=== PATIENT | female | born 1955 | race Caucasian/White ===

== ENCOUNTER 2024-04-21 15:23 | Outpatient (CLI) | payer MEDICARE, SELFPAY ==
--- NOTE | 2024-04-21 09:15 | DI.RAD_ITS ---
Exam(s) XR KNEE RT 4V AP,LAT,STACEY,PAT EXAM: XR KNEE RT 4V AP,LAT,STACEY,PAT CLINICAL HISTORY: RIGHT KNEE PAIN. TECHNIQUE: 2D digital imaging was performed of the right knee. Four views obtained. Merchant, AP, la teral and PA tunnel views were obtained. COMPARISON: No exams were available for comparison FINDINGS: BONES: No acute fracture is present. No bony destructive lesion is seen. JOINTS: The knee is normally aligned. There is a small joint effusion. The joint spaces are otherwis e well maintained. SOFT TISSUE: Normal. IMPRESSION: Small joint effusion. DATA REPOSITORY: RADIATION DOSE DELIVERED:
== END 2024-04-21 15:24 | disposition home or self-care (01) ==
LOC: DIORS 15:23
PROVIDERS: PCP Internal Medicine; Referring Provider Internal Medicine; Visit Provider Physician Assistant
DX: S83.241A Other tear of medial meniscus, current injury, right knee, initial encounter; X58.XXXA Exposure to other specified factors, initial encounter
CPT/HCPCS: 99203; 73564

== ENCOUNTER 2024-05-12 01:20 | Outpatient (CLI) | payer MEDICARE, SELFPAY ==
--- NOTE | 2024-05-12 07:00 | DI.MRI_ITS ---
Exam(s) MR LOWER JOINT RT WO EXAM: MR LOWER JOINT RT WO CLINICAL HISTORY: PAIN,tear of medial meniscus rt knee, s83.241a. TECHNIQUE: Multiplanar multisequence MRI was performed. COMPARISON: CR XR KNEE RT 4V AP,LAT,STACEY,PAT from 04/21/2024 FINDINGS: BONES: There is no fracture or contusion pattern. JOINTS: There is loss of the articular cartilage in the lateral patellofemoral joint with subchondral edema present. There is a moderate size joint effusion. TENDONS: Extensor mechanism: Unremarkable. Medial retinaculum: Unremarkable. Lateral retinaculum: Unremarkable. Popliteus: Unremarkable. MUSCLES: Unremarkable. MENISCI: There is degenerative signal seen in the medial meniscus. There is hyperintense linear sign al seen extending the entire length of the anterior horn of the lateral meniscus and into the body rodriguez spicious for tear. SOFT TISSUES: There is fluid seen anterior to the patella which may represent a bursitis. LIGAMENTS: Anterior Cruciate: Unremarkable. Posterior Cruciate: Unremarkable. Medial Collateral:Unremarkable. Lateral Collateral: Unremarkable. OTHER: IMPRESSION: 1. Marked arthritic changes involving the patellofemoral joint particularly laterally. 2. Hyperintense signal on the T2 weighted images in the anterior horn and body of the lateral meniscu s suspicious for tear. 3. Degenerative changes seen in the medial meniscus. 4. No evidence of a ligament tear. DATA REPOSITORY:
== END 2024-05-12 01:40 ==
LOC: DI 01:20
PROVIDERS: PCP Internal Medicine; Visit Provider Student in an Organized Health Care Education/Training Program
DX: S83.241D Other tear of medial meniscus, current injury, right knee, subsequent encounter (principal); X58.XXXD Exposure to other specified factors, subsequent encounter
CPT/HCPCS: 73721

== ENCOUNTER → 2024-05-22 10:00 | Outpatient (BNVA) | payer MEDICARE, SELFPAY | PROVIDERS: PCP Internal Medicine; Referring Provider Internal Medicine; Visit Provider Student in an Organized Health Care Education/Training Program | DX: M17.11 Unilateral primary osteoarthritis, right knee (principal); S83.281A Other tear of lateral meniscus, current injury, right knee, initial encounter; X58.XXXA Exposure to other specified factors, initial encounter | CPT/HCPCS: 99214 ==

== ENCOUNTER 2024-05-28 12:32 | Day surgery (SDC) | payer MEDICARE, SELFPAY ==
[2024-05-28] VITALS (18 sets, daily range): BP systolic 109–150; BP diastolic 58–93; PULSE 60–69; RESP 13–17; TEMP 35.8–36.5; O2SAT 96–99; BMI 24.0
--- NOTE | 2024-05-28 09:51 | W.PM.DSUDISC ---
Date of service: 05/28/24 Discharge Plan Disposition Patient Disposition: Home Condition: Good Discharge Details Reason For Visit: L Knee Arthroscopy Attending Provider: Tera Kruger Primary Care Provider: Akiko Huff Home Meds and New Rx's Prescriptions: New acetaminophen 500 mg tablet 1,000 mg PO TID Qty: 90 0RF hydrocodone-acetaminophen 5-325 mg tablet 1 tab PO Q6H PRN (Reason: pain) Qty: 6 0RF ibuprofen 600 mg tablet 600 mg PO TID PRN (Reason: pain) Qty: 90 0RF Continued calcium citrate-vitamin D3 200 mg-6.25 mcg (250 unit) tablet 2 tab PO DAILY docusate sodium [Colace] 100 mg capsule 200 mg PO .weekly PRN polyethylene glycol 3350 [Miralax] 17 gram/dose powder 17 g PO DAILY nitrofurantoin macrocrystal 50 mg capsule 50 mg PO QHS Rx Instructions: must administer with a meal/food Discontinued ibuprofen 200 mg tablet 400 mg PO Q6H PRN Discharge Instructions Stand Alone Forms: [facility] Knee Arthroscopy Referrals: Tera Kruger MD [ [facility] STAFF PHYSICIAN] - Equipment/Supplies: Partial Weight Bearing Crutches Activity:: Activity as Tolerated Remove Dressings/Wound Care:: 72 hours Shower/Bathe:: 72 hours Diet:: As Tolerated Discharge Orders Discharge Orders: Discharge Order (Routine); Ordered 05/28/24 Ordered By: Jaiden Montiel DS: Diagnosis Discharge Diagnosis (1) Tear of lateral meniscus of right knee: Status: Acute
[2024-05-28] MEDS: Celecoxib 200 MG CAP 400 MG PO (13:00)
[2024-05-28] MEDS: Acetaminophen 500 MG TAB 1000 MG PO (13:00)
[2024-05-28] MEDS: Normal Saline 500 ML 30 ML IV (13:02)
--- NOTE | 2024-05-28 13:39 | W.ANESPRE ---
General Info Date of Service Date Performed: 05/28/24 Height: 5 ft 4 in Weight: 63.4 kg Body Mass Index (BMI): 24.0 Surgical Procedure: Operation Date: 05/28/24 16:10 Proposed Procedure Side Surgeon p Knee Arthroscopy, Lateral Menisectomy Right Tera Kruger MD Actual Procedure Side Surgeon p Knee Arthroscopy, Lateral Menisectomy Right Tera Kruger MD Pre-Op Diagnosis Post-Op Diagnosis (1) Tear of lateral meniscus of right knee: (2) Patellofemoral arthritis of right knee: Meds Allergies and Home Medications Allergies Allergy/AdvReac Type Severity Reaction Status Date / Time pollen extracts Allergy Unknown Unknown Verified 05/28/24 12:51 Home Medication ?Medication ?Instructions ?Recorded calcium 200 mg (as 2 tab PO DAILY 03/18/24 citrate)-vitamin D3 6.25 mcg (250 unit) tablet docusate sodium 100 mg capsule 200 mg PO .weekly PRN 03/18/24 (Colace) nitrofurantoin macrocrystal 50 mg 50 mg PO QHS 03/18/24 capsule polyethylene glycol 3350 17 17 g PO DAILY 03/18/24 gram/dose oral powder (Miralax) acetaminophen 500 mg tablet 1,000 mg (2 x 500 mg) PO TID #90 05/28/24 tabs hydrocodone 5 mg-acetaminophen 325 1 tab PO Q6H PRN pain #6 tabs 05/28/24 mg tablet ibuprofen 600 mg tablet 600 mg PO TID PRN pain #90 tabs 05/28/24 Current Visit Medications: Current Medications Generic Name Dose Route Start Last Admin Trade Name Freq PRN Reason Stop Dose Admin Acetaminophen 650 mg 05/28/24 09:50 Acetaminophen 325 Mg Tab PO 06/27/24 09:49 Q4H PRN PRN Acetaminophen 1,000 mg 05/28/24 06:00 05/28/24 13:00 Acetaminophen 500 Mg Tab PO 05/28/24 23:59 1,000 mg PREOP REYNA Administration Hydrocodone Bitart/Acetaminophen 0 tab 05/28/24 09:50 Hydrocodone 5/Acetaminophen 325 Tab PO 06/27/24 09:49 Q3H PRN PRN Pain Celecoxib 400 mg 05/28/24 06:00 05/28/24 13:00 Celecoxib 200 Mg Cap PO 05/28/24 23:59 400 mg PREOP REYNA Administration Sodium Chloride 500 mls @ 30 mls/hr 05/28/24 12:30 05/28/24 13:02 Saline 500ml Bag IV 06/27/24 12:29 30 mls/hr INFUSION REYNA Administration Ringer's Solution 1,000 mls @ 80 mls/hr 05/28/24 06:00 IV 05/28/24 23:59 INFUSION REYNA Cefazolin Sodium/Dextrose 2 gm in 50 mls @ 100 mls/hr 05/28/24 06:00 Ancef Duplex IVPB 05/28/24 23:59 PREOP REYNA Tranexamic Acid/Sodium Chloride 1,000 mg in 100 mls @ 600 mls/hr 05/28/24 06:00 IVPB 05/28/24 23:59 PREOP REYNA IV Miscellaneous Supplies 1 each 05/28/24 12:30 Iv Access IV 06/27/24 12:29 DIRECTED REYNA IV Miscellaneous Supplies 1 each 05/28/24 06:00 Iv Access IV 05/28/24 23:59 DIRECTED REYNA Sodium Chloride 0 ml 05/28/24 06:59 Normal Saline Flush 10 Ml Syr IVP 06/27/24 06:58 PRN PRN Sodium Chloride 0 ml 05/28/24 08:30 Normal Saline Flush 10 Ml Syr IVP 06/27/24 08:29 BID REYNA Sodium Chloride 0 ml 05/28/24 06:59 Normal Saline 10 Ml Vial IJ 06/27/24 06:58 DIRECTED PRN Sodium Chloride 0 ml 05/28/24 06:00 Normal Saline Flush 10 Ml Syr IV 05/28/24 23:59 PRN PRN Sodium Chloride 0 ml 05/28/24 06:00 Normal Saline 10 Ml Vial IJ 05/28/24 23:59 DIRECTED PRN Sterile Water 0 ml 05/28/24 06:00 Water,Injection,Sterile 10 Ml Vial IJ 05/28/24 23:59 DIRECTED PRN PFSH Active Problems Active Problems: Problem Status Onset Code Patellofemoral arthritis of right knee Acute M17.11 Tear of lateral meniscus of right knee Acute S83.281A Tear of medial meniscus of right knee Acute S83.241A Idiopathic osteoarthritis Acute M19.90 Medical History Medical History Hypertensive disorder Chronic cystitis Allergic rhinitis Surgical History Surgical History S/P ORIF (open reduction internal fixation) fracture LEFT DISTAL RADIUS History of tonsillectomy History of arthroscopy of left knee History of colonoscopy Tobacco Smoking/Tobacco Use Status: Never Substance Use Substance use type: does not use Vital Signs and Lab Results Vital Signs Most Recent Vital Signs in EMR: Most Recent Vital Signs Temp Pulse Resp BP Pulse Ox 36.3 C L 65 16 150/93 H 99 05/28/24 12:42 05/28/24 12:42 05/28/24 12:42 05/28/24 12:42 05/28/24 12:42 Lab Results Blood Type / Crossmatch: No Data to Display Complete Blood Count: No Data to Display Complete Metabolic Panel: No Data to Display Liver Function Panel: No Data to Display Coagulation Panel: No Data to Display Cardiac Panel: No Data to Display Arterial Blood Gas: No Data to Display Venous Blood Gas: No Data to Display Pancreas Panel: No Data to Display Thyroid Panel: No Data to Display Infectious Disease: No Data to Display Blood Cultures: No Data to Display Toxicology Panel: No Data to Display Anesthesia Assessment and Plan Anesthesia History Personal History: No History of Anesthesia Complications Family History: No Family History of Anesthesia Complications Exercise Tolerance Exercise Tolerance: Metabolic Equivalents>4 Pertinent Negatives Pertinent Negatives: No Symptoms of GERD Cardiac & Pulmonary Exam Cardiac Exam: Normal S1/S2 Heart Sounds Pulmonary Exam: Clear Bilateral Breath Sounds Implantable Cardiac Device Does patient have a Pacemaker or an ICD?: No Airway Exam Known Difficult Airway: No Mallampati Class: 2 Mouth Opening: Normal (> 3cm) Thyromental Distance: Greater than 3 cm Neck Range of Motion: Full ROM Neck Circumference: Normal Teeth Condition: Normal Dentition ASA Classification ASA Score: ASA 2 Emergency Case?: No NPO Status NPO Status: NPO Clears >2 hours, Solids >8 hours Anesthesia Plan Resuscitation Status: Full Code Anesthesia Technique: General Anesthesia Airway Planned: LMA Monitors Used: Standard Monitors
[2024-05-28] MEDS: ceFAZolin 2 GM/50 ML BAG IVPB (14:41)
[2024-05-28] MEDS: TRANEXAMIC ACID/SOD. CHL. 1,000 MG/100 ML BAG 600 MG IVPB (14:42)
[2024-05-28] MEDS: Bupivacaine 0.25% Pres-Free 30 ML VIAL (15:27)
[2024-05-28] MEDS: EPINEPHrine 10 MG/10 ML ML (15:27)
--- NOTE | 2024-05-28 15:53 | ROE_ITS ---
Operative Note Operative Note PRE-OP DIAGNOSIS: Right knee lateral meniscus tear POST-OP DIAGNOSIS: other (Displaced anterior lateral meniscus tear; Grade IV chondromalacia trochlea and patella) PROCEDURE: Arthroscopic partial lateral meniscectomy, synovectomy?right knee SURGEON: Tera Kruger ANESTHESIA TYPE: General LMA/ETT Refer to Anesthesia Record ESTIMATED BLOOD LOSS: 0 PATHOLOGY: none sent COMPLICATIONS: None Patient was transported to: PACU Patient's condition: stable Indications: I have seen Patricia in clinic for symptoms of a meniscus tear. This was confirmed based on MRI and exam findings. Nonoperative measures were exhausted but disability and pain persisted. I discussed knee arthroscopy with meniscal intervention with the patient. I reviewed the risks of the procedure to include, but not limited to, bleeding, infection, pain, stiffness, damage to nerves or vessels, recurrence, blood clot. Despite these risks, the patient elected to proceed. Findings: A diagnostic arthroscopy was performed with the following findings: Suprapatellar Pouch: Mild inflammatory change, No loose bodies Medial Compartment: No obvious meniscal tearing, Intact meniscal root, small, focal areas of grade II chondromalacia of the tibia, No loose bodies Notch: ACL and PCL were intact Lateral Compartment: Complex meniscal tear involving the anterior portion of the meniscus from the root all the way through the body across the anterior horn with displaced fragments, Intact meniscal root, focal grade II chondromalacia, No loose bodies Patellofemoral Compartment: Grade IV chondromalacia of the patella with eburnated bone as well as no cartilage and exposed bone from the lateral aspect of the trochlea, No apparent patellar maltracking Procedure Description: Patricia was greeted in the preoperative holding area where the correct side was identified and marked. The consent was reviewed with the patient and signed. The history and physical was updated. All questions were answered. She was taken back to the operating room. The patient was placed into the supine position on the operating room table. All bony prominences were well padded. Prophylactic antibiotics in the form of Cefazolin were administered. The right leg was then prepped with Chloraprep and draped in a standard fashion with stockinette and extremity drape. A timeout to confirm correct identity, side and site, procedure, allergies, anesthesia, and medical concerns was performed. The leg was placed into a pneumatic leg brito, [id number]. A standard lateral portal was made at the lateral border of the patella tendon in line with the inferior pole of the patella, soft spot. The skin and deep tissue was incised sharply and the blunt trochar was inserted atraumatically. A diagnostic arthroscopy was performed and the findings are listed above. The suprapatellar pouch had no significant inflammatory change. The patellofemoral articulation showed severe chondromalacia with exposed bone of the lateral trochlea and grade IV chondromalacia of the patella with eburnated bone. The patella did have good tracking. The lateral gutter had no loose bodies and the medial gutter had no loose bodies. The knee was brought into some valgus stress in extension to open the medial compartment. A medial portal was made, localized by a spinal needle. The portal was created with an #11 blade through skin and capsule under direct visualization avoiding any meniscal injury. A probe was then inserted into the medial compartment. The medial compartment was fully inspected. The chondral surface of the tibia showed very small area of focal grade II chondromalacia and the surface of the femur showed no significant chondromalacia. The medial meniscus had no meniscal tear. The notch was then inspected which showed an intact ACL and an intact PCL. The leg was then brought into a figure of 4 position. The lateral compartment was fully inspected with the arthroscope and a probe. The chondral surface of the lateral femur showed mild chondromalacia. The chondral surface of the lateral tibia showed focal grade 2 chondromalacia. The lateral meniscus had a complex meniscal tear originating from the anterior horn extending into the body as well as the anterior root. There is a displaced fragment and tearing in both h orizontal and complex patterns. After evaluation, the meniscus was debrided down to a stable base using a series of biters and arthroscopic elsi. It was probed afterwards to confirm that the tear had been removed and the meniscus was stable. The arthroscope was brought back into the suprapatellar pouch and the leg was in full extension. The knee was thoroughly irrigated with the arthroscopic fluid on high flow and pressure. Inflow was stopped and excess fluid was removed. The wounds were closed with 4-0 Nylon. They were dressed with Xeroform, 4x4 gauze, ABD pad, Kerlix and an DEBORAH wrap. A cryo-cuff was applied. The patient tolerated the procedure well and was returned to the Same Day Surgery area in a stable condition suffering no known complication. Date of Procedure: 05/28/24
--- NOTE | 2024-05-28 15:55 | W.ANESPOSTOP ---
Postoperative Evaluation Date, Time and Location Date Performed: 05/28/24 Time Performed: 15:56 Patient Location: PACU Vital Signs Most Recent Imported Vital Signs: Most Recent Vital Signs Temp Pulse Resp BP Pulse Ox 36.3 C L 64 17 109/68 98 05/28/24 15:42 05/28/24 15:45 05/28/24 15:46 05/28/24 15:45 05/28/24 15:46 Pain Score Most Recent Pain Score: Most Recent Pain Score Pain Level 5 05/28/24 15:47 Assessment Mental Status: Awake (Alert & Oriented to Patient Baseline) Airway and Respiratory Function: Patent airway with normal (patient baseline) respiratory exam Cardiovascular Function: Hemodynamically Stable Hydration Status: Adequately Hydrated Nausea & Vomiting: No Nausea or Vomiting Pain: Pain is tolerable per patient Peripheral Nerve Block: Patient did not receive a nerve block
== END 2024-05-28 17:02 | disposition home or self-care (01) ==
LOC: SUR 12:33
PROVIDERS: PCP Internal Medicine; Visit Provider Student in an Organized Health Care Education/Training Program
PROC: (CPT 29870; principal; 2024-05-28 16:00)
DX: M23.241 Derangement of anterior horn of lateral meniscus due to old tear or injury, right knee (principal); M22.41 Chondromalacia patellae, right knee
CPT/HCPCS: 29881; J0665; J0690; J1100; J2405; J2704; J3010

== ENCOUNTER → 2024-06-06 08:38 | Outpatient (BNVA) | payer MEDICARE, SELFPAY | PROVIDERS: PCP Internal Medicine; Referring Provider Internal Medicine | DX: Z48.89 Encounter for other specified surgical aftercare (principal); M25.561 Pain in right knee | CPT/HCPCS: 99024 ==

== ENCOUNTER → 2025-01-26 08:19 | Outpatient (BNVA) | payer MEDICARE, SELFPAY | PROVIDERS: PCP Internal Medicine; Referring Provider Internal Medicine; Visit Provider Student in an Organized Health Care Education/Training Program | DX: M17.11 Unilateral primary osteoarthritis, right knee (principal) | CPT/HCPCS: 20610; J1010 ==